=== PATIENT | female | born 1985 | race Two or more races ===

== ENCOUNTER 2017-07-06 04:56 | Inpatient (IN) | payer BC ==
--- NOTE | 2017-07-06 07:08 | PCM.PREANE ---
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) - Physical Assessment NPO Status Date: 07/05/17 NPO Status Time: 20:00 Pulse: 98 O2 Sat by Pulse Oximetry: 97 Respiratory Rate: 16 Blood Pressure: 117/75 Temperature: 36.6 C Height: 1.63 m Weight: 83 kg ASA Class: 2 Mental Status: Alert & Oriented x3 Airway Class: Mallampati = 2 Dentition: Reports: Normal Dentition, Caries Thyro-Mental Finger Breadths: 3 Mouth Opening Finger Breadths: 3 ROM/Head Extension: Full Lungs: Clear to Auscultation, Normal Respiratory Effort Cardiovascular: Regular Rate, Regular Rhythm, No Murmurs - Lab Values: [id number]=[id number] - Anesthesia Plan Pre-Op Medication Ordered: None - Acknowledgements Anesthesia Type Planned: Spinal Pt an Appropriate Candidate for the Planned Anesthesia: Yes Alternatives and Risks of Anesthesia Discussed w Pt/Guardian: Yes Pt/Guardian Understands and Agrees with Anesthesia Plan: Yes
[2017-07-06] MEDS ORDERED: Bupivacaine 0.5% 30 ML SDV ONE (07:27)
[2017-07-06] MEDS ORDERED: Metoclopramide 10 MG/2 ML SDV IVPUSH ONE (07:44)
[2017-07-06] MEDS ORDERED: ceFAZolin 2 GM in Premix Bag 1 BAG IV ONE (07:44)
[2017-07-06] MEDS ORDERED: Citric Acid/Sodium Citrate Solution 30 ML Cup PO ONE (07:44)
[2017-07-06] MEDS ORDERED: Sodium Chloride 0.9% 10 ML Syringe FLUSH PRN (07:44)
[2017-07-06] MEDS ORDERED: Oxytocin/Lactated Ringers 10 UNIT/1,000 ML BAG IV SCH (07:45)
[2017-07-06] MEDS ORDERED: Lactated Ringers 1,000 ML IV SCH (07:45)
[2017-07-06] MEDS ORDERED: fentaNYL 100 MCG/2 ML SDV IVPUSH PRN (08:13)
[2017-07-06] MEDS ORDERED: ePHEDrine 50 MG/ML SDV IVPUSH PRN ×2 (08:13→10:03)
[2017-07-06] MEDS ORDERED: diphenhydrAMINE 50 MG/ML SDV IVPUSH PRN ×2 (08:13→10:03)
[2017-07-06] MEDS ORDERED: Ondansetron 4 MG/2 ML SDV IVPUSH PRN (08:13)
[2017-07-06] MEDS ORDERED: HYDROmorphone 0.5 MG/0.5 ML SYRINGE IVPUSH PRN (08:14)
[2017-07-06] MEDS ORDERED: Phenylephrine 1 MG in Sodium Chloride 0.9% 10 ML IV SCH (08:15)
--- NOTE | 2017-07-06 08:55 | PCM.POSTAN ---
POST ANESTHESIA ASSESSMENT - MENTAL STATUS Mental Status: Alert - VITAL SIGNS Pulse Rate: 84 SaO2: 98 Resp Rate: 6 Blood Pressure: 113/59 Temperature: 36.4 C - RESPIRATORY Respiratory Status: Respiratory Rate WNL, Airway Patent, O2 Saturation Stable, Supplemental Oxygen - CARDIOVASCULAR CV Status: Pulse Rate WNL, Blood Pressure Stable - GASTROINTESTINAL GI Status: No Symptoms - POST OP HYDRATION Hydration Status: Adequate & Stable
--- NOTE | 2017-07-06 09:18 | PCM.OPNOTE ---
- General Post-Op/Procedure Note Date of Surgery/Procedure: 07/06/17 Operative Procedure(s): Repeat section Findings: Viable female weight 7 lbs. 11 oz. Apgars 8/9 at 08 17. Normal uterus tubes and ovaries. Pre Op Diagnosis: Prior desires repeat Post-Op Diagnosis: Same Anesthesia Technique: Spinal Primary Surgeon: Gricel Heck Systems Integration Advisor: Nidhi Gonzales Role of Systems Integration Advisor: Patient safety, retraction Fluid Replacement, Intraop: 600 Output, Urine Amount: 125 EBL in mLs: 800 Complications: None Condition: Good Free Text/Narrative:: The patient was taken to the operating room where epidural anesthesia was dosed to surgical levels without difficulty. The patient was prepped and draped in the usual sterile fashion in the dorsal supine position with a leftward tilt. A Pfannenstiel skin incision was made with the scalpel and carried through to the underlying layer of fascia. The fascia was incised in the midline and extended laterally using Blackwood scissors. Yoli clamps were used to elevate the superior aspect of the fascial incision, which was elevated, and the underlying rectus muscles were dissected off bluntly and using Blackwood scissors. Attention was then turned to the inferior aspect of the fascial incision, which in similar fashion was grasped with Yoli clamps, elevated, and the underlying rectus muscles were dissected off bluntly and using the blackwood. The rectus muscles were dissected in the midline. The peritoneum was entered bluntly; this incision was extended superiorly and inferiorly with good visualization of the bladder. The bladder blade was inserted. The vesicouterine peritoneum was identified and entered sharply using Metzenbaum scissors. This incision was extended laterally and the bladder flap was created digitally. The bladder blade was reinserted. The lower uterine segment was incised in a transverse fashion using the scalpel and with digital traction. Copious clear fluid was noted. The was subsequently delivered by flexing the head to the incision and using kiwi vacuum to facilitate. Body and shoulders followed without difficulty. The cord was clamped and cut. The infant was subsequently handed to the awaiting punch finisher whose presence had been requested.. The placenta was delivered spontaneously intact with a three- vessel cord noted. The uterus was exteriorized and cleared of all clots and debris. The uterine incision was repaired in 2 layers using 0 monocryl. Hemostasis was visualized. Hemostasis was visualized bilaterally. The uterus was returned to the abdomen. The uterine incision was reexamined and it was noted to be hemostatic. The pelvis was copiously irrigated. The fascia was closed with 1 PDS suture, and the skin was closed with 3-0 monocryl. Sponge, lap, and instrument counts were correct x2. The patient was stable at the completion of the procedure and was subsequently transferred to the recovery room in stable condition.
[2017-07-06] MEDS ORDERED: Ketorolac 30 MG/ML SDV IVPUSH SCH (10:00)
[2017-07-06] MEDS ORDERED: Docusate Sodium 100 MG Cap PO PRN (10:03)
[2017-07-06] MEDS ORDERED: Naloxone 0.4 MG/ML SDV IVPUSH PRN (10:03)
[2017-07-06] MEDS ORDERED: Dextrose 5%-Lactated Ringers 1,000 ML IV SCH (10:03)
[2017-07-06] MEDS ORDERED: Lanolin 100% Cream 7 GM Tube TOP PRN (10:03)
[2017-07-06] MEDS: Ketorolac 30 MG/ML SDV IVPUSH SCH ×2 (14:12→20:27)
[2017-07-07] MEDS: Ketorolac 30 MG/ML SDV IVPUSH SCH (02:20)
--- NOTE | 2017-07-07 07:37 | PCM.PNPP ---
- General Info Date of Service: 07/07/17 Functional Status: Reports: Pain Controlled, Tolerating Diet, Ambulating, Urinating - Review of Systems General: Reports: No Symptoms Pulmonary: Reports: No Symptoms Cardiovascular: Reports: No Symptoms Gastrointestinal: Reports: Abdominal Pain (manageable with medications ) Genitourinary: Reports: No Symptoms Musculoskeletal: Reports: No Symptoms - Patient Data Vital Signs - Most Recent: Last Vital Signs Temp 36.9 C 07/07/17 03:00 Pulse 79 07/07/17 03:00 Resp 16 07/07/17 04:00 BP 110/60 07/07/17 03:00 Pulse Ox 97 07/07/17 04:00 Weight - Most Recent: 83.461 kg I&O - Last 24 Hours: Intake & Output 07/06/17 07/07/17 07/07/17 22:59 06:59 14:59 Intake Total 2350 1500 Output Total 1900 700 Balance 450 800 Med Orders - Current: Current Medications Diphenhydramine HCl (Benadryl) 25 mg IVPUSH Q6H PRN PRN Reason: Itching or Nausea Last Admin: 07/06/17 15:42 Dose: 25 mg Docusate Sodium (Colace) 100 mg PO Q12H PRN PRN Reason: Constipation Emollient Ointment (Lansinoh Hpa) 0 gm TOP ASDIRECTED PRN PRN Reason: Sore Nipples Ephedrine Sulfate (Ephedrine Sulfate) 5 mg IVPUSH SEECOMMENT PRN PRN Reason: Other Ibuprofen (Motrin) 600 mg PO Q6H PRN PRN Reason: mild pain or fever Naloxone HCl (Narcan) 0.1 mg IVPUSH SEECOMMENT PRN PRN Reason: Respiratory Depression Discontinued Medications Bupivacaine HCl (Marcaine 0.5%) Confirm Administered Dose 30 ml .ROUTE .STK-MED ONE Stop: 07/06/17 07:28 Last Admin: 07/06/17 08:11 Dose: 20 ml Citric Acid/Sodium Citrate (Bicitra Solution) 30 ml PO ONETIME ONE Stop: 07/06/17 07:45 Last Admin: 07/06/17 07:15 Dose: 30 ml Diphenhydramine HCl (Benadryl) 25 mg IVPUSH Q6H PRN PRN Reason: pruritis Ephedrine Sulfate (Ephedrine Sulfate) 5 mg IVPUSH ASDIRECTED PRN PRN Reason: Hypotension Fentanyl (Sublimaze) 50 mcg IVPUSH Q5M PRN PRN Reason: Pain Hydromorphone HCl (Dilaudid) 0.5 mg IVPUSH ONETIME PRN PRN Reason: Pain Cefazolin Sodium/Dextrose 2 gm (/ Premix) 50 mls @ 100 mls/hr IV ONETIME ONE Stop: 07/06/17 08:13 Lactated Ringer's (Ringers, Lactated) 1,000 mls @ 125 mls/hr IV ASDIRECTED MINE Oxytocin/Lactated Ringer's (Pitocin In Lr 10 Units/1,000 Ml) 10 unit in 1,000 mls @ 100 mls/hr IV ASDIRECTED MINE; Protocol Phenylephrine HCl 1 mg/ Sodium (Chloride) 10.1 mls @ 1 mls/sec IV TITRATE MINE; Protocol Dextrose/Lactated Ringer's (Dextrose 5%-Lactated Ringers) 1,000 mls @ 125 mls/ hr IV ASDIRECTED MINE Stop: 07/06/17 18:02 Last Admin: 07/06/17 13:05 Dose: 125 mls/hr Ketorolac Tromethamine (Toradol) 30 mg IVPUSH Q6H [facility] Stop: 07/06/17 22:01 Ketorolac Tromethamine (Toradol) 30 mg IVPUSH Q6H [facility] Stop: 07/07/17 02:01 Last Admin: 07/07/17 02:20 Dose: 30 mg Metoclopramide HCl (Reglan) 10 mg IVPUSH ONETIME ONE Stop: 07/06/17 07:45 Last Admin: 07/06/17 07:14 Dose: 10 mg Ondansetron HCl (Zofran) 4 mg IVPUSH ONETIME PRN PRN Reason: Nausea/Vomiting Sodium Chloride (Saline Flush) 10 ml FLUSH ASDIRECTED PRN PRN Reason: Keep Vein Open - Interaction Disposition, : [place] in Room with Family Infant Interaction: Holding Infant Feeding: Breastfed ; Nursed Well Support Person: - Recovery Exam Fundal Tone: Firm Fundal Level: At Umbilicus Fundal Placement: Midline Lochia Amount: Scant, Small Lochia Color: Rubra/Red Perineum Description: Intact, Minimal Bruising/Swelling Episiotomy/Laceration: None Bladder Status: Nonpalpable Urinary Elimination: Other (see below) Other Urinary Elimination, : Catheter removed - Exam General: Alert, Oriented, Cooperative Lungs: Clear to Auscultation, Normal Respiratory Effort Cardiovascular: Regular Rate, Regular Rhythm GI/Abdominal Exam: Soft, Tender (appropriate) Skin: Warm, Dry, Intact Wound/Incisions: Dressing Dry and Intact, No Drainage - Problem List & Annotations (1) S/P repeat low transverse SNOMED Code(s): 121980676, 564972444, 516423191, 202142658 Code(s): Z98.891 - HISTORY OF UTERINE SCAR FROM PREVIOUS SURGERY Status: Acute Current Visit: Yes - Problem List Review Problem List Initiated/Reviewed/Updated: Yes - Assessment Assessment:: POD#1 from RLTCS - Plan Plan:: S/p RLTCS * Routine cares * CBC today * Discharge home today
[2017-07-07] MEDS: Ibuprofen 600 MG Tab PO PRN ×2 (14:36→22:43)
[2017-07-07] MEDS: Acetaminophen/oxyCODONE 325-5 MG Tab PO PRN (18:30)
[2017-07-08] MEDS: Acetaminophen/oxyCODONE 325-5 MG Tab PO PRN ×2 (02:28→09:07)
--- NOTE | 2017-07-08 07:33 | PCM.PNPP ---
- General Info Date of Service: 07/08/17 Functional Status: Reports: Pain Controlled, Tolerating Diet, Ambulating, Urinating - Review of Systems General: Reports: No Symptoms Pulmonary: Reports: No Symptoms Cardiovascular: Reports: No Symptoms Gastrointestinal: Reports: Abdominal Pain (manageable with medications ) Genitourinary: Reports: No Symptoms Musculoskeletal: Reports: No Symptoms - Patient Data Vital Signs - Most Recent: Last Vital Signs Temp 36.7 C 07/08/17 03:00 Pulse 81 07/08/17 04:13 Resp 15 07/08/17 04:13 BP 122/77 07/08/17 04:13 Pulse Ox 98 07/08/17 04:13 Weight - Most Recent: 83.461 kg Med Orders - Current: Current Medications Diphenhydramine HCl (Benadryl) 25 mg IVPUSH Q6H PRN PRN Reason: Itching or Nausea Last Admin: 07/06/17 15:42 Dose: 25 mg Docusate Sodium (Colace) 100 mg PO Q12H PRN PRN Reason: Constipation Emollient Ointment (Lansinoh Hpa) 0 gm TOP ASDIRECTED PRN PRN Reason: Sore Nipples Ephedrine Sulfate (Ephedrine Sulfate) 5 mg IVPUSH SEECOMMENT PRN PRN Reason: Other Ibuprofen (Motrin) 600 mg PO Q6H PRN PRN Reason: mild pain or fever Last Admin: 07/07/17 22:43 Dose: 600 mg Naloxone HCl (Narcan) 0.1 mg IVPUSH SEECOMMENT PRN PRN Reason: Respiratory Depression Oxycodone/Acetaminophen (Percocet 325-5 Mg) 1 - 2 tab PO Q6H PRN PRN Reason: Pain Last Admin: 07/08/17 02:28 Dose: 2 tab Discontinued Medications Bupivacaine HCl (Marcaine 0.5%) Confirm Administered Dose 30 ml .ROUTE .STK-MED ONE Stop: 07/06/17 07:28 Last Admin: 07/06/17 08:11 Dose: 20 ml Citric Acid/Sodium Citrate (Bicitra Solution) 30 ml PO ONETIME ONE Stop: 07/06/17 07:45 Last Admin: 07/06/17 07:15 Dose: 30 ml Diphenhydramine HCl (Benadryl) 25 mg IVPUSH Q6H PRN PRN Reason: pruritis Ephedrine Sulfate (Ephedrine Sulfate) 5 mg IVPUSH ASDIRECTED PRN PRN Reason: Hypotension Fentanyl (Sublimaze) 50 mcg IVPUSH Q5M PRN PRN Reason: Pain Hydromorphone HCl (Dilaudid) 0.5 mg IVPUSH ONETIME PRN PRN Reason: Pain Cefazolin Sodium/Dextrose 2 gm (/ Premix) 50 mls @ 100 mls/hr IV ONETIME ONE Stop: 07/06/17 08:13 Last Admin: 07/07/17 20:58 Dose: Not Given Lactated Ringer's (Ringers, Lactated) 1,000 mls @ 125 mls/hr IV ASDIRECTED MINE Oxytocin/Lactated Ringer's (Pitocin In Lr 10 Units/1,000 Ml) 10 unit in 1,000 mls @ 100 mls/hr IV ASDIRECTED MINE; Protocol Phenylephrine HCl 1 mg/ Sodium (Chloride) 10.1 mls @ 1 mls/sec IV TITRATE MINE; Protocol Dextrose/Lactated Ringer's (Dextrose 5%-Lactated Ringers) 1,000 mls @ 125 mls/ hr IV ASDIRECTED MINE Stop: 07/06/17 18:02 Last Admin: 07/06/17 13:05 Dose: 125 mls/hr Ketorolac Tromethamine (Toradol) 30 mg IVPUSH Q6H [facility] Stop: 07/06/17 22:01 Last Admin: 07/07/17 20:59 Dose: Not Given Ketorolac Tromethamine (Toradol) 30 mg IVPUSH Q6H [facility] Stop: 07/07/17 02:01 Last Admin: 07/07/17 02:20 Dose: 30 mg Metoclopramide HCl (Reglan) 10 mg IVPUSH ONETIME ONE Stop: 07/06/17 07:45 Last Admin: 07/06/17 07:14 Dose: 10 mg Ondansetron HCl (Zofran) 4 mg IVPUSH ONETIME PRN PRN Reason: Nausea/Vomiting Sodium Chloride (Saline Flush) 10 ml FLUSH ASDIRECTED PRN PRN Reason: Keep Vein Open - Interaction Infant Disposition, : in Room with Family Infant Interaction: Holding Infant Feeding: Breastfed Infant; Nursed Well Support Person: - Recovery Exam Fundal Tone: Firm Fundal Level: 1 Fingerbreadths Below Umbilicus Fundal Placement: Midline Lochia Amount: Scant, Small Lochia Color: Rubra/Red Perineum Description: Intact, Minimal Bruising/Swelling Episiotomy/Laceration: None Bladder Status: Voiding Urinary Elimination: Other (see below) Other Urinary Elimination, : Catheter removed - Exam General: Alert, Oriented, Cooperative Lungs: Clear to Auscultation, Normal Respiratory Effort Cardiovascular: Regular Rate, Regular Rhythm GI/Abdominal Exam: Soft, Tender (appropriate post op) Extremities: Normal Inspection Skin: Warm, Dry, Intact Wound/Incisions: Healing Well, No Drainage - Problem List & Annotations (1) S/P repeat low transverse SNOMED Code(s): 401046631, 812454859, 158964380, 394958746 Code(s): Z98.891 - HISTORY OF UTERINE SCAR FROM PREVIOUS SURGERY Status: Acute Current Visit: Yes - Problem List Review Problem List Initiated/Reviewed/Updated: Yes - My Orders Last 24 Hours: My Active Orders 07/07/17 18:13 Acetaminophen/oxyCODONE [Percocet 325-5 MG] 1 - 2 tab PO Q6H PRN 07/08/17 07:31 CBC W/O DIFF,HEMOGRAM [HEME] Stat - Assessment Assessment:: POD#2 from RLTCS - Plan Plan:: S/p RLTCS * Routine cares * Breast feeding * Discharge home today
--- NOTE | 2017-07-08 07:33 | PCM.DCSUM1 ---
Discharge Summary - Discharge Data Discharge Date: 07/08/17 Discharge Disposition: Home, Self-Care 01 Condition: Good - Discharge Diagnosis/Problem(s) (1) S/P repeat low transverse SNOMED Code(s): 252045015, 637692093, 308640593, 806903650 ICD Code: Z98.891 - HISTORY OF UTERINE SCAR FROM PREVIOUS SURGERY Status: Acute Current Visit: Yes - Patient Summary/Data Operative Procedure(s) Performed: Repeat section Consults: None Recommended Follow-up Testing/Procedures: Follow up in 1-[address] Heck for incision check Hospital Course: 31 y/o woman admitted for planned RLTCS. This was uncomplicated. See procedure note. she did well and was discharged home on POD#2. - Patient Instructions Diet: Regular Diet as Tolerated Activity: No Lifting Over 10 Pounds Activity, Other: Pelvic Rest for 6 weeks Driving: May Drive Today Showering/Bathing: May Shower, No Tub Bathing/Swimming Wound/Incision Care: Keep Operative Site/Wound Site Clean and Dry Notify Provider of: Fever, Increased Pain, Swelling and Redness, Drainage, Nausea and/or Vomiting - Discharge Plan Prescriptions/Med Rec: Acetaminophen/oxyCODONE [Percocet 325-5 MG] 1 - 2 tab PO Q6H PRN #20 tablet PRN Reason: Pain Home Medications: Home Meds Acetaminophen/oxyCODONE [Percocet 325-5 MG] 1 - 2 tab PO Q6H PRN #20 tablet [Rx] Docusate Sodium [Colace] 100 mg PO Q12H PRN cap 07/07/17 [Rx] Ibuprofen [Motrin] 600 mg PO Q6H PRN tablet 07/07/17 [Rx] Patient Handouts: Delivery, Care After, Home Care Instructions for Mom Referrals: Grecia Mcwilliams MD [Physician] - (1-2 weeks for incision check ) - Discharge Summary/Plan Comment DC Time >30 min.: No - Patient Data Vitals - Most Recent: Last Vital Signs Temp 36.7 C 07/08/17 03:00 Pulse 81 07/08/17 04:13 Resp 15 07/08/17 04:13 BP 122/77 07/08/17 04:13 Pulse Ox 98 07/08/17 04:13 Weight - Most Recent: 83.461 kg Med Orders - Current: Current Medications Diphenhydramine HCl (Benadryl) 25 mg IVPUSH Q6H PRN PRN Reason: Itching or Nausea Last Admin: 07/06/17 15:42 Dose: 25 mg Docusate Sodium (Colace) 100 mg PO Q12H PRN PRN Reason: Constipation Emollient Ointment (Lansinoh Hpa) 0 gm TOP ASDIRECTED PRN PRN Reason: Sore Nipples Ephedrine Sulfate (Ephedrine Sulfate) 5 mg IVPUSH SEECOMMENT PRN PRN Reason: Other Ibuprofen (Motrin) 600 mg PO Q6H PRN PRN Reason: mild pain or fever Last Admin: 07/07/17 22:43 Dose: 600 mg Naloxone HCl (Narcan) 0.1 mg IVPUSH SEECOMMENT PRN PRN Reason: Respiratory Depression Oxycodone/Acetaminophen (Percocet 325-5 Mg) 1 - 2 tab PO Q6H PRN PRN Reason: Pain Last Admin: 07/08/17 02:28 Dose: 2 tab Discontinued Medications Bupivacaine HCl (Marcaine 0.5%) Confirm Administered Dose 30 ml .ROUTE .STK-MED ONE Stop: 07/06/17 07:28 Last Admin: 07/06/17 08:11 Dose: 20 ml Citric Acid/Sodium Citrate (Bicitra Solution) 30 ml PO ONETIME ONE Stop: 07/06/17 07:45 Last Admin: 07/06/17 07:15 Dose: 30 ml Diphenhydramine HCl (Benadryl) 25 mg IVPUSH Q6H PRN PRN Reason: pruritis Ephedrine Sulfate (Ephedrine Sulfate) 5 mg IVPUSH ASDIRECTED PRN PRN Reason: Hypotension Fentanyl (Sublimaze) 50 mcg IVPUSH Q5M PRN PRN Reason: Pain Hydromorphone HCl (Dilaudid) 0.5 mg IVPUSH ONETIME PRN PRN Reason: Pain Cefazolin Sodium/Dextrose 2 gm (/ Premix) 50 mls @ 100 mls/hr IV ONETIME ONE Stop: 07/06/17 08:13 Last Admin: 07/07/17 20:58 Dose: Not Given Lactated Ringer's (Ringers, Lactated) 1,000 mls @ 125 mls/hr IV ASDIRECTED MINE Oxytocin/Lactated Ringer's (Pitocin In Lr 10 Units/1,000 Ml) 10 unit in 1,000 mls @ 100 mls/hr IV ASDIRECTED MINE; Protocol Phenylephrine HCl 1 mg/ Sodium (Chloride) 10.1 mls @ 1 mls/sec IV TITRATE MINE; Protocol Dextrose/Lactated Ringer's (Dextrose 5%-Lactated Ringers) 1,000 mls @ 125 mls/ hr IV ASDIRECTED MINE Stop: 07/06/17 18:02 Last Admin: 07/06/17 13:05 Dose: 125 mls/hr Ketorolac Tromethamine (Toradol) 30 mg IVPUSH Q6H [facility] Stop: 07/06/17 22:01 Last Admin: 07/07/17 20:59 Dose: Not Given Ketorolac Tromethamine (Toradol) 30 mg IVPUSH Q6H [facility] Stop: 07/07/17 02:01 Last Admin: 07/07/17 02:20 Dose: 30 mg Metoclopramide HCl (Reglan) 10 mg IVPUSH ONETIME ONE Stop: 07/06/17 07:45 Last Admin: 07/06/17 07:14 Dose: 10 mg Ondansetron HCl (Zofran) 4 mg IVPUSH ONETIME PRN PRN Reason: Nausea/Vomiting Sodium Chloride (Saline Flush) 10 ml FLUSH ASDIRECTED PRN PRN Reason: Keep Vein Open
[2017-07-08] MEDS: Ibuprofen 600 MG Tab PO PRN (08:06)
== END 2017-07-08 10:06 | disposition home or self-care (01) | DRG 540 ==
LOC: JD.OB 04:56
PROVIDERS: ADMIT Obstetrics & Gynecology; ATTEND Obstetrics & Gynecology
PROC: 10D00Z1 Extraction of Products of Conception, Low, Open Approach (ICD-10-PCS; principal; 2017-07-06)
DX: O34.211 Maternal care for low transverse scar from previous cesarean delivery (principal); Z37.0 Single live birth; Z3A.38 38 weeks gestation of pregnancy
CPT/HCPCS: 36415; 59025; 85027; A9270-GY; J1200; J1885; J2765; J7042

== ENCOUNTER 2018-12-04 15:01 | Emergency (ER) | payer BC ==
--- NOTE | 2018-12-04 15:40 | EDM.PDOC ---
ED HPI GENERAL MEDICAL PROBLEM - General Chief Complaint: Headache Stated Complaint: MIGRAINE,ABDOMINAL PAIN Time Seen by Provider: 12/04/18 15:37 Source of Information: Reports: Patient, Family, RN Notes Reviewed (Spells) - History of Present Illness INITIAL COMMENTS - FREE TEXT/NARRATIVE: 33-year-old female comes in with headache, fever and chills. He first had onset of headache about 6 days ago followed by fever and chills 5 days ago and continued headache. Has had continued intermittent headache since that time but the fever did go away. At work this morning not too long ago she started getting fever and chills again. Also does have generalized headache. She denies sore throat, nasal or sinus congestion or cough. Chest pain or difficulty breathing. She has had some mild voiding dysuria this past week or 2 and also has been having intermittent low back pain which is quite bothersome at this time. There has been no nausea or vomiting. Appetite has been diminished. She has been "drinking a lot of water". Headache Pain Score (Numeric/FACES): 10 - Related Data Allergies Allergy/AdvReac Type Severity Reaction Status Date / Time No Known Allergies Allergy Verified 12/04/18 15:26 Home Meds: Home Meds Ibuprofen [Motrin] 600 mg PO Q6H PRN tablet 07/07/17 [Rx] Past Medical History Genitourinary History: Reports: None [employer] History: Reports: Hematologic History: Reports: Sickle Cell Anemia - Past Surgical History Female Surgical History: Reports: Section Social & Family History - Family History Family Medical History: Noncontributory - Caffeine Use Caffeine Use: Reports: None ED ROS GENERAL - Review of Systems Review Of Systems: See Below Constitutional: Reports: Fever, Chills HEENT: Denies: Ear Pain, Sinus Problem, Throat Pain, Vertigo Respiratory: Denies: Shortness of Breath, Cough Cardiovascular: Denies: Chest Pain GI/Abdominal: Denies: Abdominal Pain, Diarrhea, Nausea, Vomiting : Reports: Dysuria (Mild) Musculoskeletal: Reports: Other (Generalized achiness) Skin: Denies: Rash Neurological: Reports: Dizziness, Headache. Denies: Trouble Speaking, Difficulty Walking ED EXAM, GENERAL - Physical Exam Exam: See Below General Appearance: Alert, Moderate Distress Eye Exam: Bilateral Eye: PERRL Nose: Normal Inspection Throat/Mouth: Other (Oral mucosa is quite dry). No: Inflammation Head: Atraumatic. No: Facial Swelling Neck: Supple, Other (Good range of motion with no neck pain with rotation or flexion). No: Lymphadenopathy (L), Lymphadenopathy (R) Respiratory/Chest: No Respiratory Distress, Lungs Clear, Normal Breath Sounds. No: Rhonchi, Wheezing Cardiovascular: Tachycardia GI/Abdominal: Soft, Non-Tender Back Exam: No: CVA Tenderness (L), CVA Tenderness (R), Paraspinal Tenderness, Vertebral Tenderness Extremities: Normal Inspection, Normal Range of Motion Neurological: Alert, Oriented, No Motor/Sensory Deficits Skin Exam: Warm, Dry, Normal Color Course - Vital Signs Last Recorded V/S: Last Vital Signs Temp 99.4 F 12/04/18 18:07 Pulse 127 H 12/04/18 15:22 Resp 20 12/04/18 15:22 BP 128/84 12/04/18 15:22 Pulse Ox 100 12/04/18 15:22 - Orders/Labs/Meds Orders: Active Orders 24 hr Category Date Time Status Peripheral IV Care [RC] . DIRECTED Care 12/04/18 15:53 Active Chest 1V Frontal [CR] Stat Exams 12/04/18 15:52 Taken CULTURE BLOOD [BC] Stat Lab 12/04/18 16:22 Received CULTURE BLOOD [BC] Stat Lab 12/04/18 16:33 Received REFLEX LACTIC ACID YES OR NO [CHEM] Routine Lab 12/04/18 17:23 Received Ketorolac [Toradol] Med 12/04/18 20:30 Active 20 mg IVPUSH ONETIME Sodium Chloride 0.9% [Normal Saline] 1,000 ml Med 12/04/18 16:00 Active IV ONETIME Sodium Chloride 0.9% [Saline Flush] Med 12/04/18 15:53 Active 10 ml FLUSH ASDIRECTED PRN Peripheral IV Insertion Adult [OM.PC] Stat Oth 12/04/18 15:53 Ordered Medication Orders Sodium Chloride (Normal Saline) 1,000 mls @ 999 mls/hr IV ONETIME MINE Last Admin: 12/04/18 15:59 Dose: 999 mls/hr Ketorolac Tromethamine (Toradol) 20 mg IVPUSH ONETIME MINE Last Admin: 12/04/18 20:30 Dose: 20 mg Sodium Chloride (Saline Flush) 10 ml FLUSH ASDIRECTED PRN PRN Reason: Keep Vein Open Last Admin: 12/04/18 16:00 Dose: 10 ml Labs: Laboratory Tests 12/04/18 12/04/18 12/04/18 Range/Units 15:45 15:45 15:45 WBC (3.98-10.04) K/mm3 RBC (3.98-5.22) M/mm3 Hgb (11.2-15.7) gm/dl Hct (34.1-44.9) % MCV (79.4-94.8) fl MCH (25.6-32.2) pg MCHC (32.2-35.5) g/dl RDW Std Deviation (36.4-46.3) fL Plt Count (182-369) K/mm3 MPV (9.4-12.3) fl Neutrophils % (Manual) (40-60) % Band Neutrophils % (0-10) % Lymphocytes % (Manual) (20-40) % Atypical Lymphs % % Monocytes % (Manual) (2-10) % Eosinophils % (Manual) (0.7-5.8) % Basophils % (Manual) (0.1-1.2) Platelet Estimate Polychromasia Hypochromasia RBC Morph Comment Sodium 135 L (136-145) mEq/L Potassium 3.7 (3.5-5.1) mEq/L Chloride 98 (98-107) mEq/L Carbon Dioxide 24 (21-32) mEq/L Anion Gap 16.7 H (5-15) BUN 11 (7-18) mg/dL Creatinine 0.8 (0.55-1.02) mg/dL Est Cr Clr Drug Dosing 91.88 mL/min Estimated GFR (MDRD) > 60 (>60) mL/min BUN/Creatinine Ratio 13.8 L (14-18) Glucose 104 (74-106) mg/dL Lactic Acid (0.4-2.0) mmol/L Calcium 9.8 (8.5-10.1) mg/dL Total Bilirubin 0.5 (0.2-1.0) mg/dL AST 34 (15-37) U/L ALT 47 (14-59) U/L Alkaline Phosphatase 155 H (46-116) U/L C-Reactive Protein 1.0 (<1.0) mg/dL Total Protein 8.8 H (6.4-8.2) g/dl Albumin 4.1 (3.4-5.0) g/dl Globulin 4.7 gm/dL Albumin/Globulin Ratio 0.9 L (1-2) HCG, Qual Negative (NEGATIVE) Urine Color (Yellow) Urine Appearance (Clear) Urine pH (5.0-8.0) Ur Specific [place] (1.005-1.030) Urine Protein (Negative) Urine Glucose (UA) (Negative) Urine Ketones (Negative) Urine Occult Blood (Negative) Urine Nitrite (Negative) Urine Bilirubin (Negative) Urine Urobilinogen (0.2-1.0) Ur Leukocyte Esterase (Negative) Urine RBC (0-5) /hpf Urine WBC (0-5) /hpf Ur Squamous Epith Cells (0-5) /hpf Urine Bacteria (FEW) /hpf Urine Mucus (FEW) /hpf 12/04/18 12/04/18 12/04/18 Range/Units 16:13 16:22 16:44 WBC 13.27 H (3.98-10.04) K/mm3 RBC 4.03 (3.98-5.22) M/mm3 Hgb 10.8 L (11.2-15.7) gm/dl Hct 32.3 L (34.1-44.9) % MCV 80.1 D (79.4-94.8) fl MCH 26.8 (25.6-32.2) pg MCHC 33.4 (32.2-35.5) g/dl RDW Std Deviation 37.6 (36.4-46.3) fL Plt Count 444 H D (182-369) K/mm3 MPV 8.3 L (9.4-12.3) fl Neutrophils % (Manual) 87 H (40-60) % Band Neutrophils % 3 (0-10) % Lymphocytes % (Manual) 10 L (20-40) % Atypical Lymphs % 0 % Monocytes % (Manual) 0 L (2-10) % Eosinophils % (Manual) 0 L (0.7-5.8) % Basophils % (Manual) 0 L (0.1-1.2) Platelet Estimate Adequate Polychromasia Few Hypochromasia 1+ slight RBC Morph Comment Not Reportable Sodium (136-145) mEq/L Potassium (3.5-5.1) mEq/L Chloride (98-107) mEq/L Carbon Dioxide (21-32) mEq/L Anion Gap (5-15) BUN (7-18) mg/dL Creatinine (0.55-1.02) mg/dL Est Cr Clr Drug Dosing mL/min Estimated GFR (MDRD) (>60) mL/min BUN/Creatinine Ratio (14-18) Glucose (74-106) mg/dL Lactic Acid 3.1 H (0.4-2.0) mmol/L Calcium (8.5-10.1) mg/dL Total Bilirubin (0.2-1.0) mg/dL AST (15-37) U/L ALT (14-59) U/L Alkaline Phosphatase (46-116) U/L C-Reactive Protein (<1.0) mg/dL Total Protein (6.4-8.2) g/dl Albumin (3.4-5.0) g/dl Globulin gm/dL Albumin/Globulin Ratio (1-2) HCG, Qual (NEGATIVE) Urine Color Light yellow (Yellow) Urine Appearance Clear (Clear) Urine pH 7.0 (5.0-8.0) Ur Specific [place] 1.020 (1.005-1.030) Urine Protein Negative (Negative) Urine Glucose (UA) Negative (Negative) Urine Ketones Negative (Negative) Urine Occult Blood Negative (Negative) Urine Nitrite Negative (Negative) Urine Bilirubin Negative (Negative) Urine Urobilinogen 1.0 (0.2-1.0) Ur Leukocyte Esterase Negative (Negative) Urine RBC 0-5 (0-5) /hpf Urine WBC 0-5 (0-5) /hpf Ur Squamous Epith Cells 0-5 (0-5) /hpf Urine Bacteria Few (FEW) /hpf Urine Mucus Not seen (FEW) /hpf 12/04/18 Range/Units 19:23 WBC (3.98-10.04) K/mm3 RBC (3.98-5.22) M/mm3 Hgb (11.2-15.7) gm/dl Hct (34.1-44.9) % MCV (79.4-94.8) fl MCH (25.6-32.2) pg MCHC (32.2-35.5) g/dl RDW Std Deviation (36.4-46.3) fL Plt Count (182-369) K/mm3 MPV (9.4-12.3) fl Neutrophils % (Manual) (40-60) % Band Neutrophils % (0-10) % Lymphocytes % (Manual) (20-40) % Atypical Lymphs % % Monocytes % (Manual) (2-10) % Eosinophils % (Manual) (0.7-5.8) % Basophils % (Manual) (0.1-1.2) Platelet Estimate Polychromasia Hypochromasia RBC Morph Comment Sodium (136-145) mEq/L Potassium (3.5-5.1) mEq/L Chloride (98-107) mEq/L Carbon Dioxide (21-32) mEq/L Anion Gap (5-15) BUN (7-18) mg/dL Creatinine (0.55-1.02) mg/dL Est Cr Clr Drug Dosing mL/min Estimated GFR (MDRD) (>60) mL/min BUN/Creatinine Ratio (14-18) Glucose (74-106) mg/dL Lactic Acid 1.7 (0.4-2.0) mmol/L Calcium (8.5-10.1) mg/dL Total Bilirubin (0.2-1.0) mg/dL AST (15-37) U/L ALT (14-59) U/L Alkaline Phosphatase (46-116) U/L C-Reactive Protein (<1.0) mg/dL Total Protein (6.4-8.2) g/dl Albumin (3.4-5.0) g/dl Globulin gm/dL Albumin/Globulin Ratio (1-2) HCG, Qual (NEGATIVE) Urine Color (Yellow) Urine Appearance (Clear) Urine pH (5.0-8.0) Ur Specific [place] (1.005-1.030) Urine Protein (Negative) Urine Glucose (UA) (Negative) Urine Ketones (Negative) Urine Occult Blood (Negative) Urine Nitrite (Negative) Urine Bilirubin (Negative) Urine Urobilinogen (0.2-1.0) Ur Leukocyte Esterase (Negative) Urine RBC (0-5) /hpf Urine WBC (0-5) /hpf Ur Squamous Epith Cells (0-5) /hpf Urine Bacteria (FEW) /hpf Urine Mucus (FEW) /hpf Meds: Medications Generic Name Dose Route Start Last Admin Trade Name Freq PRN Reason Stop Dose Admin Sodium Chloride 1,000 mls @ 999 mls/hr 12/04/18 16:00 12/04/18 15:59 Normal Saline IV 999 mls/hr ONETIME MINE Administration Ketorolac Tromethamine 20 mg 12/04/18 20:30 12/04/18 20:30 Toradol IVPUSH 20 mg ONETIME MINE Administration Sodium Chloride 10 ml 12/04/18 15:53 12/04/18 16:00 Saline Flush FLUSH 10 ml ASDIRECTED PRN Administration Keep Vein Open Discontinued Medications Generic Name Dose Route Start Last Admin Trade Name Luis PRN Reason Stop Dose Admin Acetaminophen 975 mg 12/04/18 15:53 12/04/18 15:59 Tylenol PO 12/04/18 15:54 975 mg NOW ONE Administration Hydromorphone HCl 0.5 mg 12/04/18 18:42 12/04/18 18:47 Dilaudid IVPUSH 12/04/18 18:43 0.5 mg ONETIME ONE Administration Lactated Ringer's 1,000 mls @ 999 mls/hr 12/04/18 17:31 12/04/18 17:50 Ringers, Lactated IV 12/04/18 18:31 999 mls/hr .BOLUS ONE Administration - Re-Assessments/Exams Free Text/Narrative Re-Assessment/Exam: 12/04/18 16:30. Patient did meet sepsis alert criteria at time of triage based on initial fever, tachycardia. White blood count did come back mildly elevated. C-reactive protein is 1.0, not elevated. We did draw blood cultures 2. Lactic acid was mildly elevated at 3.1. 19:55. She was given a liter of normal saline followed by a liter of lactated Ringer's. She has also been drinking water. UA, chest x-ray normal. Etiology of infection not apparent. I do not see a bacterial source of infection at this time, IV antibiotics have not been ordered. Repeat lactic acid 1.7. She was given Tylenol initially and then a dose of dilaudid 0.5 mg IV for continued headache and muscle achiness. This time her headache is gone. She does feel much better. She does feel up to going home. I discussed with her and her the need for clinic follow-up tomorrow. She will return to ED if symptoms worsening in any way. Departure - Departure Time of Disposition: 19:58 Disposition: Home, Self-Care 01 Condition: Fair Clinical Impression: Viral syndrome, Fever, Headache, Dehydration - Discharge Information Referrals: PCP,None [Primary Care Provider] - Forms: ED Department Discharge, ED Return to Work/School Form Additional Instructions: Rest, continue to drink plenty of water to maintain hydration, no work recommended tomorrow, you may take Tylenol 3-4 times daily if needed for further headache or other discomfort. See one of our clinic providers at our [facility] tomorrow afternoon for recheck. Call [phone] for appointment. Blood Cultures times 2 were drawn today here in the ED. Preliminary results should be available by tomorrow afternoon. - My Orders Last 24 Hours: My Active Orders 12/04/18 15:52 Chest 1V Frontal [CR] Stat 12/04/18 15:53 Peripheral IV Care [RC] . DIRECTED Sodium Chloride 0.9% [Saline Flush] 10 ml FLUSH ASDIRECTED PRN Peripheral IV Insertion Adult [OM.PC] Stat 12/04/18 16:00 Sodium Chloride 0.9% [Normal Saline] 1,000 ml IV ONETIME 12/04/18 16:22 CULTURE BLOOD [BC] Stat 12/04/18 16:33 CULTURE BLOOD [BC] Stat 12/04/18 17:23 REFLEX LACTIC ACID YES OR NO [CHEM] Routine 12/04/18 20:30 Ketorolac [Toradol] 20 mg IVPUSH ONETIME - Assessment/Plan Last 24 Hours: My Active Orders 12/04/18 15:52 Chest 1V Frontal [CR] Stat 12/04/18 15:53 Peripheral IV Care [RC] . DIRECTED Sodium Chloride 0.9% [Saline Flush] 10 ml FLUSH ASDIRECTED PRN Peripheral IV Insertion Adult [OM.PC] Stat 12/04/18 16:00 Sodium Chloride 0.9% [Normal Saline] 1,000 ml IV ONETIME 12/04/18 16:22 CULTURE BLOOD [BC] Stat 12/04/18 16:33 CULTURE BLOOD [BC] Stat 12/04/18 17:23 REFLEX LACTIC ACID YES OR NO [CHEM] Routine 12/04/18 20:30 Ketorolac [Toradol] 20 mg IVPUSH ONETIME
[2018-12-04] MEDS ORDERED: Sodium Chloride 0.9% 10 ML Syringe FLUSH PRN (15:53)
[2018-12-04] MEDS ORDERED: Acetaminophen 325 MG Tab PO ONE (15:53)
[2018-12-04] MEDS ORDERED: Sodium Chloride 0.9% 1,000 ML IV SCH (16:00)
[2018-12-04] MEDS ORDERED: Lactated Ringers 1,000 ML IV ONE (17:31)
[2018-12-04] MEDS ORDERED: HYDROmorphone 0.5 MG/0.5 ML Syringe IVPUSH ONE (18:42)
[2018-12-04] MEDS ORDERED: Ketorolac 30 MG/ML SDV IVPUSH SCH (20:30)
--- NOTE | 2018-12-05 08:19 | CR ---
Chest: Portable view of the chest was obtained. Comparison: No prior chest x-rays available. Heart size and mediastinum are normal. Lungs are clear. Bony structures are unremarkable. Impression: 1. Nothing acute is appreciated on portable chest x-ray. Diagnostic code #1
== END 2018-12-04 20:45 | disposition home or self-care (01) ==
LOC: JD.ED 15:01
DX: E86.0 Dehydration (principal); B34.9 Viral infection, unspecified
CPT/HCPCS: 36415; 71045; 80053; 81001; 83605; 84703; 85007; 85027; 86140; 87040; 96361; 96374; 96375; 99283; A9270; J1170; J1885; J7040; J7120; 99284

== ENCOUNTER 2018-12-05 13:23 | Emergency (ER) | payer BC ==
--- NOTE | 2018-12-05 13:46 | EDM.PDOC ---
ED HPI GENERAL MEDICAL PROBLEM - General Chief Complaint: Headache Stated Complaint: HEADACHE Time Seen by Provider: 12/05/18 13:45 Source of Information: Reports: Patient History Limitations: Reports: No Limitations - History of Present Illness INITIAL COMMENTS - FREE TEXT/NARRATIVE: 33-year-old female apparently mayuri and descent presents to the ED with a recurrence of her headache. It is constant and throbbing since about 0500 hrs. this morning. Has had a headache and intermittent chills and questionable fever for the last week. No change in her visual field no balance problems. Sometimes she gets lightheaded when she stands up too quickly. She did have some soup for dinner. Never eats breakfast. She had a full workup in the ED yesterday which revealed a slightly elevated white count but a normal CRP at 1.0 lactic acid was elevated over 3.1. She was treated with IV fluids and second lactic acid came down to 1.7 and the patient felt markedly improved after IV meds and Dilaudid for headache relief. She states that her hair and scalp hurt. She has no positive L`Hermites sign or meningismus. Cayce pain. No cough no bad colds. The history suggests she she may well have a viral meningitis. She's had no nausea and vomiting but has been nauseated intermittently over the last week.. Is also delayed by a week. Denies any diarrhea. No open sores anywhere that healed within the last month. Blood cultures were 2 were obtained yesterday and so far they are negative. Patient tried to get into the clinic today but apparently there is not a provider available to see her. She apparently did have a bout of chills earlier this morning. She is afebrile at the time presentation. Onset: Gradual Onset Date: 11/20/18 (Started with chills low-grade fever and headache about a week ago or more.) Duration: Day(s):, Constant, Other (Has almost a constant daily headache.) Location: Reports: Head (Primarily headache.) Quality: Reports: Ache (Constant throbbing pain. Scalp hurts), Pressure, Throbbing Severity: Moderate (78 out of 10.) Improves with: Reports: Rest (Lying down.) Worsens with: Reports: Other Context: Reports: Other. Denies: Activity (Standing up makes it worse. A traction component to her headache.), Exercise, Lifting, Sick Contact, Trauma Associated Symptoms: Reports: Headaches, Loss of Appetite, Weakness. 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 Headache Pain Score (Numeric/FACES): 9 Lower Back Pain Score (Numeric/FACES): 2 - Related Data Allergies Allergy/AdvReac Type Severity Reaction Status Date / Time No Known Allergies Allergy Verified 12/04/18 15:26 Home Meds: Home Meds Ibuprofen [Motrin] 600 mg PO Q6H PRN tablet 07/07/17 [Rx] Doxycycline [Vibramycin] 100 mg PO BID #24 cap 12/05/18 [Rx] oxyCODONE HCl/Acetaminophen [Percocet 5-325 mg Tablet] 1 - 2 each PO Q4H PRN # 12 tablet 12/05/18 [Rx] Past Medical History Genitourinary History: Reports: 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: Neurological History: Reports: Migraines Hematologic History: Reports: Sickle Cell Anemia - Past Surgical History Female Surgical History: Reports: Section Social & Family History - Family History Family Medical History: Noncontributory - Tobacco Use Smoking Status *Q: Never Smoker - Caffeine Use Caffeine Use: Reports: None - Recreational Drug Use Recreational Drug Use: No - Living Situation & Occupation Living situation: Reports: Occupation: Unemployed ED ROS GENERAL - Review of Systems Review Of Systems: See Below Constitutional: Reports: Chills, Malaise, Weakness, Fatigue, Decreased Appetite HEENT: Reports: No Symptoms Respiratory: Reports: No Symptoms Cardiovascular: Reports: No Symptoms Endocrine: Reports: Fatigue GI/Abdominal: Reports: Nausea : Reports: No Symptoms (Occasional nausea.) Musculoskeletal: Reports: No Symptoms Skin: Reports: Other Neurological: Reports: Dizziness (Sometimes when she stands up too quickly.), Headache ( Her blood pressure is 100/65.). Denies: Confusion, Numbness, Paresthesia, Pre-Existing Deficit, Syncope, Tingling, Tremors, Trouble Speaking , Difficulty Walking, Weakness, Change in Speech Psychiatric: Reports: No Symptoms Hematologic/Lymphatic: Reports: No Symptoms Immunologic: Reports: No Symptoms - Physical Exam Exam: See Below Exam Limited By: No Limitations General Appearance: Alert, WD/WN, No Apparent Distress, Other (Temperatures 36.4. Pulse is 85 in sinus respiratory is 20 BP 165 sats 97% on room air.) Eye Exam: Bilateral Eye: Normal Inspection, PERRL Ears: Normal TMs Throat/Mouth: Normal Inspection, Normal Lips, Normal Oropharynx Head Exam: Atraumatic, Normocephalic, Scalp Tenderness (Diffuse scalp tenderness to palpation. This would suggest a viral inflammation of cranial nerves.) Neck: Normal Inspection, Supple, Non-Tender, Full Range of Motion, Other (No meningismus.Negative L`hermites sign. ). No: Lymphadenopathy (L), Lymphadenopathy (R) Respiratory/Chest: No Respiratory Distress, Lungs Clear, Normal Breath Sounds, No Accessory Muscle Use, Chest Non-Tender Cardiovascular: Normal Peripheral Pulses, Regular Rate, Rhythm, No Edema, No Murmur, No Rub GI/Abdominal: Normal Bowel Sounds, Soft, Non-Tender, No Organomegaly, No Abnormal Bruit, No Mass, Pelvis Stable, Other (Negative Chan's sign). No: Guarding, Rigid, Rebound, Tender Neuro Exam (Abbreviated): Alert, Oriented, CN II-XII Intact, Normal Cognition, Normal Gait, Normal Reflexes, No Motor/Sensory Deficits Back Exam: Normal Inspection, Full Range of Motion. No: CVA Tenderness (L), CVA Tenderness (R) Extremities: Normal Inspection, Normal Range of Motion, Non-Tender, No Pedal Edema Psychiatric: Normal Affect, Normal Mood Skin Exam: Warm, Dry, Intact, Normal Color, No Rash Course - Vital Signs Last Recorded V/S: Last Vital Signs Temp 36.4 C 12/05/18 13:31 Pulse 85 12/05/18 13:31 Resp 20 12/05/18 13:31 BP 100/65 12/05/18 13:31 Pulse Ox 97 12/05/18 13:31 - Orders/Labs/Meds Orders: Active Orders 24 hr Category Date Time Status Dextrose 5%-0.9% NaCl [Dextrose 5%-Normal Saline] 1,000 Med 12/05/18 14:00 Active ml IV ASDIRECTED Medication Orders Dextrose/Sodium Chloride (Dextrose 5%-Normal Saline) 1,000 mls @ 999 mls/hr IV ASDIRECTED MINE Last Admin: 12/05/18 14:23 Dose: 999 mls/hr Labs: Laboratory Tests 12/05/18 12/05/18 12/05/18 Range/Units 14:08 14:08 14:20 WBC 10.07 H (3.98-10.04) K/mm3 RBC 3.84 L (3.98-5.22) M/mm3 Hgb 10.2 L (11.2-15.7) gm/dl Hct 30.6 L (34.1-44.9) % MCV 79.7 (79.4-94.8) fl MCH 26.6 (25.6-32.2) pg MCHC 33.3 (32.2-35.5) g/dl RDW Std Deviation 37.6 (36.4-46.3) fL Plt Count 428 H (182-369) K/mm3 MPV 8.1 L (9.4-12.3) fl Neutrophils % (Manual) 85 H (40-60) % Band Neutrophils % 0 (0-10) % Lymphocytes % (Manual) 13 L (20-40) % Atypical Lymphs % 0 % Monocytes % (Manual) 1 L (2-10) % Eosinophils % (Manual) 1 (0.7-5.8) % Basophils % (Manual) 0 L (0.1-1.2) Platelet Estimate Adequate RBC Morph Comment Normal Sodium 139 (136-145) mEq/L Potassium 3.4 L (3.5-5.1) mEq/L Chloride 105 (98-107) mEq/L Carbon Dioxide 27 (21-32) mEq/L Anion Gap 10.4 (5-15) BUN 7 (7-18) mg/dL Creatinine 0.9 (0.55-1.02) mg/dL Est Cr Clr Drug Dosing 81.67 mL/min Estimated GFR (MDRD) > 60 (>60) mL/min BUN/Creatinine Ratio 7.8 L (14-18) Glucose 142 H (74-106) mg/dL Lactic Acid 1.3 (0.4-2.0) mmol/L Calcium 8.6 (8.5-10.1) mg/dL Total Bilirubin 0.4 (0.2-1.0) mg/dL AST 18 (15-37) U/L ALT 34 (14-59) U/L Alkaline Phosphatase 116 (46-116) U/L C-Reactive Protein 12.6 H* (<1.0) mg/dL Total Protein 7.0 (6.4-8.2) g/dl Albumin 3.3 L (3.4-5.0) g/dl Globulin 3.7 gm/dL Albumin/Globulin Ratio 0.9 L (1-2) Meds: Medications Generic Name Dose Route Start Last Admin Trade Name Freq PRN Reason Stop Dose Admin Dextrose/Sodium Chloride 1,000 mls @ 999 mls/hr 12/05/18 14:00 12/05/18 14:23 Dextrose 5%-Normal Saline IV 999 mls/hr ASDIRECTED MINE Administration Discontinued Medications Generic Name Dose Route Start Last Admin Trade Name Freq PRN Reason Stop Dose Admin Dexamethasone 10 mg 12/05/18 13:56 12/05/18 14:23 Dexamethasone IV 12/05/18 13:57 10 mg ONETIME ONE Administration Hydromorphone HCl 0.5 mg 12/05/18 13:55 12/05/18 14:28 Dilaudid IVPUSH 12/05/18 13:56 0.5 mg ONETIME ONE Administration Ketorolac Tromethamine 30 mg 12/05/18 13:55 12/05/18 14:24 Toradol IVPUSH 12/05/18 13:56 30 mg ONETIME ONE Administration Metoclopramide HCl 7.5 mg 12/05/18 13:55 12/05/18 14:25 Reglan IVPUSH 12/05/18 13:56 7.5 mg ONETIME ONE Administration - Radiology Interpretation Free Text/Narrative:: 33-year-old female presents to the ED for review of recurrent headache that she' s been having for the last week. Her scalp is tender to touch suggesting a viral cranial nerve inflammation. She has no signs or symptoms of meningitis . Plan Will repeat labs from yesterday ice CBC and manual differential. ERP lactic acid again. IV of D5 normal saline at open. Given Reglan 7.5 mg IV with Dilaudid 0.5 mg IV and Toradol 30 mg IV for headache relief. I also give her dexamethasone 10 mg IV. - Re-Assessments/Exams Free Text/Narrative Re-Assessment/Exam: 12/05/18 15:01 White count today is 10.07 and improvement from yesterday. The differential is 85% neutrophils however with no band cells present. Hemoglobin is 10.2 with hematocrit of 30.6. MCV is low at 79.7 suggesting iron deficiency. Sodium is 139 with a potassium slightly low at 3.4. Chloride is 105 bicarbonate 27. Anion gap is 10.4. BUN is 7 with a creatinine of 0.9. GFR is greater than 60. Glucose is 142. Lactic acid is 1.3 today. Calcium is 8.6. Liver function is normal. C-reactive protein is markedly elevated at 12.6 high suggestive of a occult bacterial infection. Total protein is 7.0 with an albumin fraction of 3.3. Her white count was elevated at 13.27 yesterday with a left shift of 87% neutrophils and 3% band cells. The source of infection by chest x-ray and urinalysis was reported as negative. At this point time she does have an infective process with an elevated CRP. 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 The blood cultures done yesterday may or may not grow out a pathogen. I'm going to start her on doxycycline 100 mg twice daily for the next 12 days to clear up infection presumably staph aureus. Departure - Departure Time of Disposition: 15:09 Disposition: Home, Self-Care 01 Condition: Fair Clinical Impression: Headache, Chills (without fever), Infection - Discharge Information *PRESCRIPTION DRUG MONITORING PROGRAM REVIEWED*: Not Applicable *COPY OF PRESCRIPTION DRUG MONITORING REPORT IN PATIENT BEST: Not Applicable Prescriptions: Doxycycline [Vibramycin] 100 mg PO BID #24 cap oxyCODONE HCl/Acetaminophen [Percocet 5-325 mg Tablet] 1 - 2 each PO Q4H PRN # 12 tablet PRN Reason: pain relief. Referrals: PCP,None [Primary Care Provider] - Forms: ED Department Discharge Additional Instructions: Evaluation the emergency room today in regards to recurrent headache and chills again today. By history you have been sick for a week with intermittent chills and diffuse headache. No neuro symptoms such as nausea vomiting or change in visual acuity or balance etc. Lab tests done yesterday suggested a likely or cold bacterial infection and cultures were done. So far the cultures are not growing out any pathogens. Blood tests were repeated today and are somewhat better than yesterday in terms that the white count is lower posterior normal but there is still 85% neutrophils which strongly suggests an underlying bacterial infection. Also markers for inflammation called a CRP change from yesterday from 1.0 which is normal to 12.3 today. The source of infection is not apparent clinically. Chest x-ray and urinalysis done yesterday were completely normal no obvious skin infection benign abdominal examination no sign of sinus infection. It may be an occult skin infection that occurred as long as 6 weeks ago such as a hangnail or scratch that just got better on its own but is now causing an infection. Suggest treatment with antibiotics doxycycline take to the first dose with food then 1 tablet twice daily for the next 11 days to clear up infection. Continue Motrin 600 mg every 6 hours as needed for fever and/or headache relief. May use Percocet tablet 5/325 mg one or 2 every 4-6 hours for headache if needed if Motrin is not helping. Marked improvement over the next 48-72 hours if not you need to be seen again in the ED. - My Orders Last 24 Hours: My Active Orders 12/05/18 14:00 Dextrose 5%-0.9% NaCl [Dextrose 5%-Normal Saline] 1,000 ml IV ASDIRECTED - Assessment/Plan Last 24 Hours: My Active Orders 12/05/18 14:00 Dextrose 5%-0.9% NaCl [Dextrose 5%-Normal Saline] 1,000 ml IV ASDIRECTED
[2018-12-05] MEDS ORDERED: HYDROmorphone 0.5 MG/0.5 ML Syringe IVPUSH ONE (13:55)
[2018-12-05] MEDS ORDERED: Ketorolac 30 MG/ML SDV IVPUSH ONE (13:55)
[2018-12-05] MEDS ORDERED: Metoclopramide 10 MG/2 ML SDV IVPUSH ONE (13:55)
[2018-12-05] MEDS ORDERED: Dexamethasone 4 MG/ML 5 ML MDV IV ONE (13:56)
[2018-12-05] MEDS ORDERED: Dextrose 5%-0.9% NaCl 1,000 ML IV SCH (14:00)
== END 2018-12-05 15:34 | disposition home or self-care (01) ==
LOC: JD.ED 13:23
DX: B99.9 Unspecified infectious disease (principal); R51 Headache; R68.83 Chills (without fever)
CPT/HCPCS: 36415; 80053; 83605; 85007; 85027; 86140; 96361; 96374; 96375; 99283; J1100; J1170; J1885; J2765; J7042; 99284